=== PATIENT | male | born 1990 | race Caucasian/White ===

== ENCOUNTER 2020-07-02 22:53 | Inpatient (IN) ==
[2020-07-02] MEDS ORDERED: MoRPHine SULFATE 4 MG/ML 1 ML CARP\\VIAL IV STA (23:11)
[2020-07-02] MEDS ORDERED: ONDANSETRON INJ 2 MG/ML 2 ML VIAL IV STA (23:11)
[2020-07-02] MEDS ORDERED: SODIUM CHLORIDE 0.9% 1000ML 1,000 ML IV SCH (23:15)
--- NOTE | 2020-07-02 23:17 | Emergency Department Note ---
History of Present Illness General Chief complaint: Abdominal Pain Stated complaint: ABD PAIN, GALL STONES, SOB History of Present Illness Maximum Pain Intensity: 7 This 30-year-old presents to the ER complaining of right upper quadrant pain Location: Right upper quadrant Quality: Achy Severity: Moderate Duration: Today Timing: Today Context: Symptoms got worse and patient came in Modifying factors: better with rest; worse with activity Patient was seen last week at [place] and was told he had biliary colic. He has an appointment in [address] Lopez from surgery in [place]. He states the pain came back today and was much worse and came here. The thinks he might had a fever. Patient denies chest pain, cough, congestion, sore throat, runny nose, vomiting, diarrhea, urinary symptoms. He had eggs and steak today. Home Medications Home Medications Medication Instructions Recorded Confirmed Type No Known Home Medications 06/16/20 07/02/20 History Allergies Allergy/AdvReac Type Severity Reaction Status Date / Time Penicillins Allergy Intermediate Verified 06/27/20 08:17 Past Med/Surg History Medical History Patient denies medical problems Patient denies significant medical history Surgical History No significant past surgical history PT DENIES SURGICAL HX Family History Grandmother Hypertension Other Family history of diabetes mellitus Family history of heart disease Social History Smoking Status: Never smoker Hx Alcohol Use: Yes Hx Substance Use: No Preferred Language: [place]ese Communication Ability: Effective Finishing Lab Technician Required: No Beliefs That Will Affect Care: None marital status: Current Living Situation: Spouse and Family current occupational status: employed 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 How many Children do You have: 2 Feels Safe at Home: Yes Review of Systems A total of 10 systems reviewed and were otherwise negative Physical Exam Vital Signs Vital Signs - 24 hr 07/02/20 22:57 07/02/20 23:36 07/03/20 00:16 Temperature 37.8 C H Temperature Source Oral Pulse Rate 96 H Pulse Rate [Bilateral] 67 68 Pulse Rhythm [Bilateral] Regular Regular Pulse Strength [Bilateral] Normal Normal Respiratory Rate 16 18 18 Respiratory Effort / Characteristics Non-Labored Spontaneous Non-Labored Spontaneous Respiratory Depth Normal Normal Respiratory Pattern Regular Regular Blood Pressure 137/87 Blood Pressure [Right Arm] 125/79 130/69 Blood Pressure Mean 103 Blood Pressure Mean [Right Arm] 94 89 Blood Pressure Position [Right Arm] Sitting Lying Pulse Oximetry 95 96 97 Oxygen Delivery Method Room Air Room Air Room Air Sepsis Recent Fever Within 48 Hours No Sepsis New/Unexplained Change in Mental Status No Sepsis Action Taken by Nursing No Action Required VITALS: Vitals are noted on the nurse's note and reviewed by myself. Vital signs stable. GENERAL: Pleasant male, in no acute distress, nondiaphoretic, well-developed well-nourished. SKIN: Capillary reflex less than 2 seconds. HEENT: Normocephalic. PERRLA. EOMI. Nares patent. Mucous membranes moist. Neck is supple without nuchal rigidity. HEART: Regular rate and rhythm without murmurs gallops or rubs. LUNGS: Clear to auscultation bilaterally without wheezes, rales or rhonchi. No retractions or accessory muscle use. ABDOMEN: Positive bowel sounds x 4. Normal tympanic percussion. Soft, tender to palpation right upper quadrant, without masses or organomegaly. No guarding or rebound tenderness. No CVA tenderness MUSCULOSKELETAL: No gross musculoskeletal defects. NEURO: Patient was alert and oriented to person place and time. No focal neurological deficits. Course Administered Medications Discontinued Medications Sodium Chloride (Nss 1000ml) 1,000 mls @ 999 mls/hr IV .Q1H1M SHOLA Stop: 07/03/20 00:15 Last Infusion: 07/03/20 00:26 Dose: 0 mls/hr Documented by: [id number] Admin: 07/02/20 23:32 Dose: 999 mls/hr Documented by: [id number] Cefoxitin Sodium (Mefoxin) 2,000 mg in 60 mls @ 100 mls/hr IV NOW STA Stop: 07/03/20 01:10 Last Admin: 07/03/20 00:50 Dose: 100 mls/hr Documented by: [id number] Morphine Sulfate (Morphine Sulfate) 4 mg IV NOW STA Stop: 07/02/20 23:12 Last Admin: 07/02/20 23:32 Dose: 4 mg Documented by: [id number] Ondansetron HCl (Zofran) 4 mg IV NOW STA Stop: 07/02/20 23:12 Last Admin: 07/02/20 23:31 Dose: 4 mg Documented by: [id number] Medical Decision Making Medical Records Attestation: I reviewed the patient's medical records. Home Medications Current Medication List: was personally reviewed by me Laboratory Data Attestation: I reviewed the patient's lab results. Result diagrams: 07/02/20 23:18 07/02/20 23:18 Lab Results 07/02/20 07/02/20 07/02/20 Range/Units 23:18 23:18 23:20 WBC 9.88 (4.8-10.8) K/uL RBC 5.00 (4.7-6.1) M/uL Hgb 14.7 (14.0-18.0) g/dL Hct 43.2 (42-52) % MCV 86.4 (80-100) fL MCH 29.4 (25-34) pg MCHC 34.0 (32-36) g/dL RDW Std Deviation 41.0 (36.4-46.3) fL RDW Coeff of Kailash 12.9 (11.5-14.5) % Plt Count 232 (130-400) K/uL MPV 9.9 (7.4-10.4) fL Immature Gran % (Auto) 0.2 % Neut % (Auto) 66.9 % Lymph % (Auto) 16.7 % [place] % (Auto) 13.5 % Eos % (Auto) 2.4 % Baso % (Auto) 0.3 % Neut # (Auto) 6.61 H (1.4-6.5) K/uL Lymph # (Auto) 1.65 (1.2-3.4) K/uL [place] # (Auto) 1.33 H (0.11-0.59) K/uL Eos # (Auto) 0.24 (0-0.5) K/uL Baso # (Auto) 0.03 (0-0.2) K/uL Immature Gran # (Auto) 0.02 (0.00-0.02) K/uL Sodium 140 (136-145) mmol/L Potassium 4.1 (3.5-5.1) mmol/L Chloride 108 H (98-107) mmol/L Carbon Dioxide 25 (21-32) mmol/L Anion Gap 7.0 (3-11) BUN 14 (7-18) mg/dl Creatinine 1.16 (0.6-1.4) mg/dl Est Cr Clr Drug Dosing 117.0 ml/min Est GFR ( Amer) 96.7 Est GFR (Non-Af Amer) 83.5 BUN/Creatinine Ratio 11.9 (10-20) Glucose 107 H (70-99) mg/dl Lactate (0.4-2.0) mmol/L Calcium 9.3 (8.5-10.1) mg/dl Total Bilirubin 1.0 (0.2-1) mg/dl AST 17 (15-37) U/L ALT 32 (12-78) U/L Alkaline Phosphatase 62 (45-117) U/L Total Protein 8.0 (6.4-8.2) gm/dl Albumin 3.9 (3.4-5.0) gm/dl Globulin 4.1 H (2.5-4.0) gm/dl Albumin/Globulin Ratio 1.0 (0.9-2) Lipase 178 (73-393) U/L Urine Color Yellow Urine Appearance Clear (Clear) Urine pH 5.0 (4.5-7.5) Ur Specific [place] 1.017 (1.000-1.030) Urine Protein Negative (Negative) Urine Glucose (UA) Negative (Negative) Urine Ketones Trace H (Negative) Urine Blood Negative (Negative) Urine Nitrite Negative (Negative) Urine Bilirubin Negative (Negative) Urine Urobilinogen Negative (Negative) Ur Leukocyte Esterase Negative (Negative) 07/02/20 Range/Units 23:39 WBC (4.8-10.8) K/uL RBC (4.7-6.1) M/uL Hgb (14.0-18.0) g/dL Hct (42-52) % MCV (80-100) fL MCH (25-34) pg MCHC (32-36) g/dL RDW Std Deviation (36.4-46.3) fL RDW Coeff of Kailash (11.5-14.5) % Plt Count (130-400) K/uL MPV (7.4-10.4) fL Immature Gran % (Auto) % Neut % (Auto) % Lymph % (Auto) % [place] % (Auto) % Eos % (Auto) % Baso % (Auto) % Neut # (Auto) (1.4-6.5) K/uL Lymph # (Auto) (1.2-3.4) K/uL [place] # (Auto) (0.11-0.59) K/uL Eos # (Auto) (0-0.5) K/uL Baso # (Auto) (0-0.2) K/uL Immature Gran # (Auto) (0.00-0.02) K/uL Sodium (136-145) mmol/L Potassium (3.5-5.1) mmol/L Chloride (98-107) mmol/L Carbon Dioxide (21-32) mmol/L Anion Gap (3-11) BUN (7-18) mg/dl Creatinine (0.6-1.4) mg/dl Est Cr Clr Drug Dosing ml/min Est GFR ( Amer) Est GFR (Non-Af Amer) BUN/Creatinine Ratio (10-20) Glucose (70-99) mg/dl Lactate 0.7 (0.4-2.0) mmol/L Calcium (8.5-10.1) mg/dl Total Bilirubin (0.2-1) mg/dl AST (15-37) U/L ALT (12-78) U/L Alkaline Phosphatase (45-117) U/L Total Protein (6.4-8.2) gm/dl Albumin (3.4-5.0) gm/dl Globulin (2.5-4.0) gm/dl Albumin/Globulin Ratio (0.9-2) Lipase (73-393) U/L Urine Color Urine Appearance (Clear) Urine pH (4.5-7.5) Ur Specific [place] (1.000-1.030) Urine Protein (Negative) Urine Glucose (UA) (Negative) Urine Ketones (Negative) Urine Blood (Negative) Urine Nitrite (Negative) Urine Bilirubin (Negative) Urine Urobilinogen (Negative) Ur Leukocyte Esterase (Negative) Imaging Data Attestation: I personally reviewed and interpreted this imaging study as follows: Blood Pressure Blood Pressure Findings: Normal blood pressure MDM Narrative Prior records/ancillary studies reviewed. Triage Nursing notes reviewed. Additional history obtained from family. The patient's history was concerning for abdominal pain. Differential diagnosis: Etiologies such as appendicitis, diverticulitis, PUD, biliary pathology, UTI, pancreatitis, obstruction, mesenteric ischemia, aortic pathology, infections, inflammatory bowel disease, renal colic, as well as others were entertained. Physical examination findings: As above. ER treatment provided: An order was placed for continuous cardiac monitoring. The monitor shows a rate of 60-100 with a sinus rhythm. IV fluids, morphine, Zofran, Mefoxin, n.p.o. Covid test ordered per surgery's request On reassessment the patient felt better. Diagnostics interpreted by me: The labs revealed no worrisome leukocytosis. Imaging studies: US GALLBLADDER: 2.2 cm gallstone in the gallbladder with additional findings suggestive of acute cholecystitis including mild gallbladder wall thickening and sonographic positive Keith sign. Echogenic liver likely representing hepatic steatosis. Radiologist: Dickson Watson MD Consultation: A consultation was placed with the surgeon Dr. Anguiano. The case was discussed and diagnostics were reviewed. The patient was evaluated in the ER for further treatment. Exam and history seem consistent with acute cholecystitis. Patient started antibiotics. Surgery was consulted. He will be admitted to their service. By the evaluation outlined above emergent etiologies such as appendicitis, diverticulitis, PUD, UTI, pancreatitis, obstruction, mesenteric ischemia, aortic pathology, inflammatory bowel disease, renal colic, as well as others were deemed relatively unlikely. The pt informed about the findings as listed above. All questions were answered and pleased with the treatment. The chart was completed utilizing [employer] Speech voice recognition software. Grammatical errors, random word insertions, pronoun errors, and incomplete sentences are an occassional consequence of this system due to software limitations, ambient noise, and hardware issues. Any formal questions or concerns about the content, text, or information contained within the body of this dictation should be directly addressed to the physician temporary office assistant for clarification. Impression & Plan Acute cholecystitis Discharge Plan Visit Data Chief Complaint: Abdominal Pain Stated Complaint: ABD PAIN, GALL STONES, SOB ED Provider: Kimberly Montalvo ED Midlevel Provider: Lorena Sapp Discharge Problem: Acute cholecystitis Patient Disposition: Admitted As Inpatient Condition: Good Forms Stand Alone Forms: [place] Prescriptions Prescriptions: No Action No Known Home Medications RF: 0 Referrals Referrals: PCP,NO [Primary Care Provider] -
[2020-07-02 23:35] LABS: Basophils # (auto) 0.03 K/uL (0-0.2); Basophils % (auto) 0.3 %; Eosinophils # (auto) 0.24 K/uL (0-0.5); Eosinophils % (auto) 2.4 %; Hematocrit (blood only) 43.2 % (42-52); Hemoglobin 14.7 g/dL (14.0-18.0); Immature Granulocytes # (auto) 0.02 K/uL (0.00-0.02); Immature Granulocytes % (auto) 0.2 %; Lymphocytes # (auto) 1.65 K/uL (1.2-3.4); Lymphocytes % (auto) 16.7 %; Mean Corpuscular Hemoglobin 29.4 pg (25-34); Mean Corpuscular Volume 86.4 fL (80-100); Mean Platelet Volume 9.9 fL (7.4-10.4); Monocytes # (auto) 1.33 K/uL (0.11-0.59); Monocytes % (auto) 13.5 %; Neutrophils # (auto) 6.61 K/uL (1.4-6.5); Neutrophils % (auto) 66.9 %; Platelet Count 232 K/uL (130-400); RDW Coefficient of Variation 12.9 % (11.5-14.5); White Blood Count 9.88 K/uL (4.8-10.8)
[2020-07-02 23:36] LABS: Appearance Urine Clear (Clear); Bilirubin Urine Negative (Negative); Blood Urine Negative (Negative); Color Urine Yellow; Glucose Urine UA Negative (Negative); Ketones Urine Trace (Negative); Leukocyte Esterase Urine Negative (Negative); Nitrite Urine Negative (Negative); Protein Urine Negative (Negative); Specific Gravity Urine 1.017 (1.000-1.030); Urobilinogen Urine Negative (Negative)
[2020-07-02 23:52] LABS: Albumin Level 3.9 gm/dl (3.4-5.0); BUN Creatinine Ratio 11.9 (10-20); Calcium 9.3 mg/dl (8.5-10.1); Est GFR (African American) 96.7; Est GFR (Non-African American) 83.5; Potassium 4.1 mmol/L (3.5-5.1)
[2020-07-02 23:54] LABS: Globulin 4.1 gm/dl (2.5-4.0)
[2020-07-03] MEDS ORDERED: cefOXitin 2,000 MG/60 ML BAG IV STA (00:35)
[2020-07-03] MEDS ORDERED: HYDROmorphone INJ 1 MG/ML SYRINGE IV PRN (02:50)
[2020-07-03] MEDS ORDERED: ONDANSETRON INJ 2 MG/ML 2 ML VIAL IV PRN ×2 (02:50→09:21)
[2020-07-03] MEDS ORDERED: PROMETHAZINE HCL 25 MG in SODIUM CHLORIDE 0.9% 50 ML IV PRN (02:50)
[2020-07-03] MEDS ORDERED: PROMETHAZINE HCL 12.5 MG in SODIUM CHLORIDE 0.9% 50 ML IV PRN ×2 (02:50→09:21)
[2020-07-03] MEDS: SODIUM CHLORIDE 0.9% 1000ML 1,000 ML IV SCH ×2 (03:02→12:17)
[2020-07-03] MEDS: HYDROmorphone INJ 0.5 MG/0.5 ML SYR IV PRN ×5 (03:05→23:21)
--- NOTE | 2020-07-03 05:43 | History & Physical Report ---
Date of Service July 03, 2020 Assessment & Plan (1) Acute cholecystitis: for laparoscopic cholecystectomy later today cont IV fluids, Atbx, analgesia History of Present Illness Primary Care Provider: NO PCP RUQ abd pain, nausea sxs for 1-2 weeks u/s shows acute cholecystitis, thickening, very Lg gs in neck of gb Allergies Allergy/AdvReac Type Severity Reaction Status Date / Time Penicillins Allergy Intermediate Verified 06/27/20 08:17 Home Medications Home Medications Medication Instructions Recorded Confirmed Type No Known Home Medications 06/16/20 07/02/20 History Past Med/Surg History Medical History Patient denies medical problems Patient denies significant medical history Surgical History No significant past surgical history PT DENIES SURGICAL HX Family History Grandmother Hypertension Other Family history of diabetes mellitus Family history of heart disease Social History Smoking Status: Never smoker Hx Alcohol Use: Yes Hx Substance Use: No Preferred Language: Lao Communication Ability: Effective Hiv Nurse Required: No Beliefs That Will Affect Care: None marital status: Current Living Situation: Family Current Living Situation Comment: with 2 kids current occupational status: employed 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 How many Children do You have: 2 Other Information That Helps Us Care for You: No Feels Safe at Home: Yes Safety Concerns: Feels Safe At This Time Review of Systems All systems reviewed & are unremarkable except as noted in HPI & below Physical Exam Physical Exam: abd soft, RUQ tenderness Constitutional: well nourished and + ill appearing; no acute distress Eyes: + anicteric sclerae Respiratory: normal respiratory effort; no respiratory distress Cardiovascular: Rate/Rhythm: regular rate Gastrointestinal (Abdomen): Inspection/Auscultation: abdomen not distended Skin: no rashes, warm and dry Neurologic: awake Psychiatric: Orientation: cooperative Results & Data Vital Signs (Past 12 Hours) Vital Signs Temp Pulse Pulse Pulse Resp BP BP 07/03/20 03:10 36.9 C 70 16 143/76 H 08/09/20 02:23 16 07/03/20 02:00 82 16 125/68 07/03/20 00:16 68 18 130/69 07/02/20 23:36 67 18 125/79 07/02/20 22:57 37.8 C H 96 H 16 137/87 Pulse Ox 07/03/20 03:10 97 07/03/20 02:23 98 07/03/20 02:00 98 07/03/20 00:16 97 07/02/20 23:36 96 07/02/20 22:57 95 reviewed labs, U/S Code Status & VTE Plan VTE Prophylaxis Plan VTE Prophylaxis will be ordered: Yes
--- NOTE | 2020-07-03 06:50 | Ultrasound Report ---
US gallbladder HISTORY: Pain. Nausea. ruq pain COMPARISON: None. FINDINGS: 2 cm gallstones with associated sludge within the gallbladder neck. Mild gallbladder wall thickening of 4 mm. No pericholecystic fluid. Common bile duct 3 mm. Fatty replacement of the liver. Right kidney is negative for hydronephrosis. IMPRESSION: 1. Combination of gallstone and sludge within the gallbladder neck. 2. Mild gallbladder wall thickening of 4 mm. 3. Normal caliber bile ducts. ACT 112: Negative or not required by law. The above report was generated using voice recognition software. It may contain grammatical, syntax or spelling errors. Electronically signed by: Kelvin Andre M.D. 07/03/2020 6:49 AM
[2020-07-03] MEDS: cefOXitin 2,000 MG in DEXTROSE 5% 50 ML IV SCH ×3 (07:27→23:18)
[2020-07-03] MEDS ORDERED: ONDANSETRON INJ 2 MG/ML 2 ML VIAL ONE ×2 (08:08→11:26)
[2020-07-03] MEDS ORDERED: MIDAZOLAM HCL 1 MG/ML 2ML VIAL ONE (08:08)
[2020-07-03] MEDS ORDERED: ROCURONIUM BROMIDE 10 MG/ML 5 ML VIAL IV ONE (08:08)
[2020-07-03] MEDS ORDERED: PROPOFOL IV EMULSION 10 MG/ML 20 ML VIAL IV ONE (08:08)
[2020-07-03] MEDS ORDERED: LIDOCAINE HCL 2% 2 ML VIAL/AMP(20MG/ML) INFIL ONE (08:08)
[2020-07-03] MEDS ORDERED: fentaNYL citrate 100 MCG/2 ML VIAL ONE ×4 (08:09→10:55)
[2020-07-03] MEDS ORDERED: ACETAMINOPHEN 1000 MG/100 ML IV IV ONE (08:54)
[2020-07-03] MEDS ORDERED: BUPIVACAINE 0.5 % 5 MG/1 ML MPF 30ML VIAL ONE (08:59)
--- NOTE | 2020-07-03 09:20 | Anesthesiology Consultation ---
Date of Service July 03, 2020 Assessment & Plan Chart Review Chart Review: Acceptable Risk for Surgery Consults Requested none History Surgery Operation Date: 07/03/20 13:00 Proposed Procedures p Laparoscopic Cholecystectomy - Satya Anguiano MD, FACS Height/Weight Height: 6 ft Weight: 111.3 kg Allergies Allergy/AdvReac Type Severity Reaction Status Date / Time Penicillins Allergy Intermediate Verified 06/27/20 08:17 Medications Home Medications Medication Instructions Recorded Confirmed Last Taken No Known Home Medications 06/16/20 07/02/20 Unknown Active Medications Generic Name Dose Route Start Last Admin Trade Name Freq PRN Reason Stop Dose Admin Hydromorphone HCl 0.5 mg 07/03/20 02:50 07/03/20 05:52 Dilaudid IV 07/17/20 02:49 0.5 mg Q3HWA PRN Administration Pain Cefoxitin Sodium 2,000 mg/ 70 mls @ 100 mls/hr 07/03/20 08:00 07/03/20 08:09 Dextrose IV 07/13/20 07:59 Infused Q8H SHOLA Infusion Sodium Chloride 1,000 mls @ 80 mls/hr 07/03/20 02:50 07/03/20 09:03 Nss 1000ml IV 08/02/20 02:49 Infused .[id number] SHOLA Infusion NPO Date Last Intake of Fluids: 07/02/20 Time Last Intake of Fluids: 20:00 Date Last Intake of Solids: 07/02/20 Time Last Intake of Solids: 16:00 Past Medical History Medical History Patient denies medical problems Patient denies significant medical history Past Family History Family History Grandmother Hypertension Other Family history of diabetes mellitus Family history of heart disease Past Surgical History Surgical History No significant past surgical history PT DENIES SURGICAL HX Social History Smoking Status: Never smoker Hx Alcohol Use: Yes alcohol intake frequency: a few times a month Hx Substance Use: No substance use type: does not use Physical Exam Vital Signs Last Vital Signs Temp 36.4 C L 07/03/20 07:20 Pulse 66 07/03/20 07:20 Resp 16 07/03/20 07:20 BP 123/72 07/03/20 07:20 Pulse Ox 96 07/03/20 07:20 Testing Laboratory Results 07/02/20 23:18 07/02/20 23:18 Urine Color Yellow 07/02/20 23:20 Urine Appearance Clear (Clear) 07/02/20 23:20 Urine pH 5.0 (4.5-7.5) 07/02/20 23:20 Ur Specific [place] 1.017 (1.000-1.030) 07/02/20 23:20 Urine Protein Negative (Negative) 07/02/20 23:20 Urine Glucose (UA) Negative (Negative) 07/02/20 23:20 Urine Ketones Trace (Negative) H 07/02/20 23:20 Urine Nitrite Negative (Negative) 07/02/20 23:20 Ur Leukocyte Esterase Negative (Negative) 07/02/20 23:20
[2020-07-03] MEDS ORDERED: ATROPINE SULFATE 0.1 MG/ML 10ML SYR IV PRN (09:21)
[2020-07-03] MEDS ORDERED: HYDROmorphone INJ 2 MG/ML SYR/VIAL IV PRN (09:21)
[2020-07-03] MEDS ORDERED: fentaNYL citrate 100 MCG/2 ML VIAL IV PRN (09:21)
[2020-07-03] MEDS ORDERED: METOCLOPRAMIDE HCL INJ 5 MG/ML 2 ML VIAL IV PRN (09:21)
[2020-07-03] MEDS ORDERED: ePHEDrine sulfate 50 MG/ML AMP IV PRN (09:21)
[2020-07-03] MEDS ORDERED: DEXAMETHASONE SOD INJ 4 MG/ML VIAL ONE (09:55)
[2020-07-03] MEDS ORDERED: GLYCOPYRROLATE 0.2 MG/ML VIAL ONE (09:55)
[2020-07-03] MEDS ORDERED: NEOSTIGMINE METHYLSULFATE 5 MG/5 ML SYR ONE (09:55)
[2020-07-03] MEDS ORDERED: ACETAMINOPHEN 1,000 MG/100 ML VIAL IV ONE (10:42)
--- NOTE | 2020-07-03 10:42 | Post Operative Brief Note ---
PG Immediate Post Op with CF Date of Surgery July 03, 2020 Pre & Post Diagnosis Operation Date: 07/03/20 09:30 Pre-Op Diagnosis: Acute cholecystitis Post-Op Diagnosis: Acute cholecystitis, necrotizing cholecystitis I identified the patient and participated in the time-out.: Yes Procedure Operation Date: 07/03/20 09:30 Actual Procedures p Laparoscopic Cholecystectomy(Not Applicable) - Satya Anguiano MD, FACS Surgeon Satya Anguiano MD, FACS Neurology Stroke Physician nurses Estimated Blood Loss 20 Findings Consistent with Post-Op Diagnosis Specimens Specimen Description: A. Gallbladder and contents Drains Ronaldo-Richardson Drain (15 Round JACKELIN)
[2020-07-03] MEDS ORDERED: KETOROLAC 30 MG/ML VIAL IV ONE (11:45)
[2020-07-03] MEDS ORDERED: KETOROLAC 30 MG/ML VIAL ONE (11:46)
--- NOTE | 2020-07-03 12:19 | Operative Report (OR) ---
DATE OF OPERATION: 07/03/2020 NAME OF OPERATION: Laparoscopic cholecystectomy. PREOPERATIVE DIAGNOSIS: Acute cholecystitis. POSTOPERATIVE DIAGNOSES: Acute cholecystitis with necrotizing cholecystitis and a giant gallstone. STAFF SURGEON: Satya Anguiano MD. GERIATRIC NURSE PRACTITIONER: Nurses. ANESTHESIA: General. DESCRIPTION OF PROCEDURE: The patient was brought in the Operating Room, placed on the operating table in supine position. His abdomen was prepped and draped in usual fashion. Pneumatic stockings, orogastric tube were placed. A 0.5% plain Marcaine was used to anesthetize all incisions. Incision was made above the umbilicus, carrying dissection down to the fascia, placing a Veress needle producing pneumoperitoneum. An 11 mm port placed at this level and then under visualization, three 5 mm ports placed, 1 cephalad and 2 laterally. The omentum was attached to the gallbladder, it was taken down with soft adhesions. The gallbladder was severely inflamed consistent with acute cholecystitis. He also had what appeared to be necrotizing cholecystitis. Dissection was carried out at the grace hepatis, identifying the cystic duct and cystic artery. This was through significant inflammatory tissue. These were clipped and transected. The gallbladder was necrotic and the back wall showed severe edema. It was dissected away from the liver in usual fashion with some difficulty. The gallbladder was placed in an Endobag. The Endobag was then removed after a 15-round Ronaldo-Richardson drain was placed into the lateral 5 mm port site, into the subhepatic space, secured to the skin using 3-0 nylon suture. I had to enlarge the umbilical wound, fascia and skin to remove the gallbladder with an enormous gallstone. The procedure did take longer than expected over 30 minutes because of the difficulty of the case including inflammation and removal of the gallbladder. Fascia at the umbilicus closed using interrupted 0 PDS suture, subcutaneous tissue reapproximated using 2-0 plain suture, then the skin reapproximated using subcuticular 4-0 Monocryl with Steri-Strips. The patient was transferred to Recovery Room in stable condition. I attest to the content of the Intraoperative Record and any orders documented therein. Any exception s are noted below.
--- NOTE | 2020-07-03 14:47 | Anesthesiology Progress Note ---
Date of Service July 03, 2020 Anesthesia Post Procedure Vital Signs Vital Signs: Temp Pulse Pulse Pulse Pulse Pulse Resp 07/03/20 14:11 36.4 C L 59 L 16 07/03/20 13:19 36.4 C L 16 07/03/20 12:50 72 18 07/03/20 12:14 36.7 C 57 L 16 07/03/20 12:00 63 17 07/03/20 11:50 56 L 14 07/03/20 11:40 36.4 C L 53 L 19 07/03/20 11:30 77 16 07/03/20 11:20 56 L 20 07/03/20 11:10 66 20 07/03/20 11:00 60 12 07/03/20 10:53 37.2 C 83 12 07/03/20 07:20 36.4 C L 66 16 07/03/20 05:57 36.8 C 70 16 07/03/20 03:10 36.9 C 70 16 07/03/20 02:23 16 07/03/20 02:00 82 16 07/03/20 00:16 68 18 07/02/20 23:36 67 18 07/02/20 22:57 37.8 C H 96 H 16 BP BP Pulse Ox 07/03/20 14:11 126/71 96 07/03/20 13:19 118/70 98 07/03/20 12:50 132/86 98 07/03/20 12:14 135/84 97 07/03/20 12:00 145/86 H 95 07/03/20 11:50 130/86 97 07/03/20 11:40 134/84 96 07/03/20 11:30 145/76 H 93 07/03/20 11:20 138/79 95 07/03/20 11:10 155/83 H 98 07/03/20 11:00 156/80 H 92 07/03/20 10:53 126/95 98 07/03/20 07:20 123/72 96 07/03/20 05:57 112/65 07/03/20 03:10 143/76 H 97 07/03/20 02:23 98 07/03/20 02:00 125/68 98 07/03/20 00:16 130/69 97 07/02/20 23:36 125/79 96 07/02/20 22:57 137/87 95 Pain Intensity Abdomen: Pain Intensity: 6 Transfer of Care Handoff Completed per policy Notes Mental Status: alert / awake / arousable and participated in evaluation Patient Amnestic to Procedure: Yes Nausea / Vomiting: adequately controlled Pain: adequately controlled Airway Patency, RR, SpO2: stable & adequate BP & HR: stable & adequate Hydration State: stable & adequate Anesthetic Complications: no major complications apparent
[2020-07-03] MEDS: OXYCODONE/ACETAMINOPHEN 5mg/325mg TAB PO PRN ×2 (18:00→21:52)
[2020-07-03] MEDS: DOCUSATE SODIUM/SENNA 50/8.6MG TAB PO SCH (19:47)
[2020-07-04] MEDS: SODIUM CHLORIDE 0.9% 1000ML 1,000 ML IV SCH ×2 (02:04→14:49)
[2020-07-04] MEDS: OXYCODONE/ACETAMINOPHEN 5mg/325mg TAB PO PRN ×4 (02:06→20:59)
[2020-07-04] MEDS: HYDROmorphone INJ 0.5 MG/0.5 ML SYR IV PRN ×2 (03:22→10:04)
--- NOTE | 2020-07-04 08:10 | Anesthesiology Progress Note ---
Date of Service July 04, 2020 Anesthesia Post Procedure Vital Signs Vital Signs: Temp Pulse Pulse Pulse Resp BP BP 07/04/20 07:51 36.6 C 55 L 18 128/75 07/04/20 03:27 36.6 C 54 L 14 134/80 07/03/20 23:15 36.5 C 60 14 128/69 07/03/20 19:45 36.5 C 65 18 121/77 07/03/20 16:30 07/03/20 15:00 36.2 C L 59 L 18 136/78 07/03/20 14:11 36.4 C L 59 L 16 126/71 07/03/20 13:19 36.4 C L 16 118/70 07/03/20 12:50 72 18 132/86 07/03/20 12:14 36.7 C 57 L 16 135/84 07/03/20 12:00 63 17 145/86 H 07/03/20 11:50 56 L 14 130/86 07/03/20 11:40 36.4 C L 53 L 19 134/84 07/03/20 11:30 77 16 145/76 H 07/03/20 11:20 56 L 20 138/79 07/03/20 11:10 66 20 155/83 H 07/03/20 11:00 60 12 156/80 H 07/03/20 10:53 37.2 C 83 12 126/95 Pulse Ox 07/04/20 07:51 95 07/04/20 03:27 92 07/03/20 23:15 93 07/03/20 19:45 94 07/03/20 16:30 97 07/03/20 15:00 96 07/03/20 14:11 96 07/03/20 13:19 98 07/03/20 12:50 98 07/03/20 12:14 97 07/03/20 12:00 95 07/03/20 11:50 97 07/03/20 11:40 96 07/03/20 11:30 93 07/03/20 11:20 95 07/03/20 11:10 98 07/03/20 11:00 92 07/03/20 10:53 98 Pain Intensity Abdomen: Pain Intensity: 6 Notes Mental Status: alert / awake / arousable and participated in evaluation Patient Amnestic to Procedure: Yes Nausea / Vomiting: see Notes below Pain: adequately controlled Airway Patency, RR, SpO2: stable & adequate BP & HR: stable & adequate Hydration State: stable & adequate Anesthetic Complications: no major complications apparent and Pt Satisfied with anesthetic care Notes: Pt complained of some nausea/vomiting immediately post-op but quickly resolved and no complaints at this time.
[2020-07-04] MEDS: DOCUSATE SODIUM/SENNA 50/8.6MG TAB PO SCH ×2 (08:16→20:56)
[2020-07-04] MEDS: cefOXitin 2,000 MG in DEXTROSE 5% 50 ML IV SCH ×3 (08:16→23:55)
[2020-07-04] MEDS: MAGNESIUM HYDROXIDE SUSP 30 ML UDC PO SCH ×2 (08:16→20:56)
--- NOTE | 2020-07-04 10:45 | Discharge Summary (DS) ---
DATE OF DISCHARGE: 07/04/2020 PRINCIPAL DIAGNOSIS: Severe acute cholecystitis. PROCEDURES: The patient underwent laparoscopic cholecystectomy with drainage. HISTORY OF PRESENT ILLNESS: The patient is a 30-year-old male presenting to the Emergency Room on 07/02/2020 with what appeared to be acute abdominal pain, found to be acute cholecystitis. He had been worked up in [place] the week prior for the same thing and was pending his surgical evaluation. HOSPITAL COURSE: The patient was taken to the operating room on 07/03/2020 where he underwent laparoscopic cholecystectomy, which was somewhat difficult because of the severe inflammation of the gallbladder. He had a drain placed. He has done relatively well. Does have some pain but is tolerating p.o. and is felt stable for discharge home. We will remove the drain prior to discharge and also continue him on some p.o. antibiotics. We will see him in the surgical clinic within 1-2 weeks.
[2020-07-04] MEDS ORDERED: MAGNESIUM CITRATE 296 ML/BTL PO STA ×2 (14:12→16:25)
[2020-07-05] MEDS: SODIUM CHLORIDE 0.9% 1000ML 1,000 ML IV SCH (02:47)
[2020-07-05] MEDS: OXYCODONE/ACETAMINOPHEN 5mg/325mg TAB PO PRN ×3 (05:37→09:21)
--- NOTE | 2020-07-05 05:57 | Surgery Progress Note ---
Date of Service July 05, 2020 Assessment & Plan (1) Status post laparoscopic cholecystectomy: Patient stable for discharge Results & Data Vital Signs (Past 12 Hours) Vital Signs Temp Pulse Resp BP Pulse Ox 07/05/20 00:01 36.9 C 56 L 16 138/73 92 PG Care Time/CCT Total # of Minutes Spent Total Time Spent with Patient: Total time spent is greater than 50% in coordination of care (as documented) at patient's floor/unit and/or counseling patient: Coding Level of Care Code None Diagnoses Status post laparoscopic cholecystectomy Z90.49
[2020-07-05 07:25] VITALS: BP 127/74; PULSE 66; TEMP 97.5; O2SAT 94
[2020-07-05] MEDS: cefOXitin 2,000 MG in DEXTROSE 5% 50 ML IV SCH (08:14)
[2020-07-05] MEDS: MAGNESIUM HYDROXIDE SUSP 30 ML UDC PO SCH (08:17)
[2020-07-05] MEDS: DOCUSATE SODIUM/SENNA 50/8.6MG TAB PO SCH (08:17)
== END 2020-07-05 10:52 | disposition home or self-care (01) | DRG 419 ==
LOC: ED 22:53 → 3E 07-03 01:09